=== PATIENT | female | born 1965 | race Caucasian/White ===

== ENCOUNTER → 2024-03-21 08:14 | Outpatient (REF) | payer BC, SELFPAY | LOC: RAD 08:14 | PROVIDERS: ATTENDING PHYSICIAN Internal Medicine Hematology & Oncology; FAMILY PHYSICIAN Family Medicine | DX: C50.411 Malignant neoplasm of upper-outer quadrant of right female breast (principal); G64 Other disorders of peripheral nervous system; G89.3 Neoplasm related pain (acute) (chronic); Z79.811 Long term (current) use of aromatase inhibitors | CPT/HCPCS: 77080 ==

== ENCOUNTER 2024-04-01 06:05 | Day surgery (SDC) | payer BC, SELFPAY ==
[2024-03-21 08:01] VITALS: BMI 25.9
[2024-04-01] MEDS: TYLENOL 1000 MG PO (06:55)
[2024-04-01 06:58] VITALS: BP 133/64; BMI 25.9
[2024-04-01] MEDS: NORMOSOL-R 1000 IV (07:30)
[2024-04-01 08:30] VITALS: BP 110/51; BP 132/64
[2024-04-01 08:45] VITALS: BP 106/57
[2024-04-01 08:49] VITALS: BP 101/54
[2024-04-01 09:15] VITALS: BP 111/60
[2024-04-01 09:45] VITALS: BP 100/60
== END 2024-04-01 09:50 | disposition home or self-care (01) ==
LOC: SDS 06:05
PROVIDERS: ATTENDING PHYSICIAN Surgery; FAMILY PHYSICIAN Family Medicine
DX: C50.911 Malignant neoplasm of unspecified site of right female breast (principal); Z17.1 Estrogen receptor negative status [ER-]; Z92.21 Personal history of antineoplastic chemotherapy
CPT/HCPCS: 36590; 36415; 93005

== ENCOUNTER → 2024-04-18 12:14 | Outpatient (REF) | payer BC, SELFPAY | LOC: WDC 12:14 | PROVIDERS: ATTENDING PHYSICIAN Radiology Radiation Oncology; FAMILY PHYSICIAN Family Medicine | DX: Z12.31 Encounter for screening mammogram for malignant neoplasm of breast (principal); Z85.3 Personal history of malignant neoplasm of breast | CPT/HCPCS: 77063; 77067 ==

== ENCOUNTER → 2024-05-05 06:30 | Day surgery (SDC) | payer BC, SELFPAY | LOC: GI 06:30 | PROVIDERS: ATTENDING PHYSICIAN Specialist; FAMILY PHYSICIAN Family Medicine | DX: Z12.11 Encounter for screening for malignant neoplasm of colon (principal); D12.2 Benign neoplasm of ascending colon; K63.5 Polyp of colon; K64.8 Other hemorrhoids; Z86.010 Personal history of colon polyps; Z80.0 Family history of malignant neoplasm of digestive organs | CPT/HCPCS: 45385; 45380; 88305 ==

== ENCOUNTER → 2025-04-27 14:07 | Outpatient (REF) | payer BC, SELFPAY | LOC: WDC 14:07 | PROVIDERS: ATTENDING PHYSICIAN Radiology Radiation Oncology | DX: Z12.31 Encounter for screening mammogram for malignant neoplasm of breast (principal) | CPT/HCPCS: 77063; 77067 ==